=== PATIENT | male | born 1995 | race Caucasian/White ===

== ENCOUNTER 2023-04-17 12:55 | Emergency (ER) | payer OTHER, SELFPAY ==
--- NOTE | ~2023-04-17 | XR_ITS ---
EXAMINATION: XR KNEE, RIGHT CLINICAL INFORMATION: Injury pain COMPARISON: None available. TECHNIQUE: Four views of the right knee. FINDINGS: No acute visible fracture or dislocation. Joint spaces and alignment are maintained. Small knee joint effusion. Soft tissues are unremarkable. XR/XR knee RT 4V IMPRESSION: 1. No acute visible fracture or dislocation. 2. Small knee joint effusion.
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
[2023-04-17 13:53] VITALS: BP 133/79; PULSE 71; RESP 16; TEMP 37.2; O2SAT 99; BMI 29.7
== END 2023-04-17 16:44 | disposition home or self-care (01) ==
LOC: HO.ED 16:43
PROVIDERS: Emergency Provider Student in an Organized Health Care Education/Training Program
DX: S80.01XA Contusion of right knee, initial encounter (principal); V86.95XA Unspecified occupant of 3- or 4- wheeled all-terrain vehicle (ATV) injured in nontraffic accident, initial encounter; Y93.9 Activity, unspecified; Y92.9 Unspecified place or not applicable; Y99.9 Unspecified external cause status
CPT/HCPCS: 73564; 99282; 99283